=== PATIENT | female | born 1970 | race Caucasian/White ===

== ENCOUNTER 2021-02-16 09:57 | Emergency (ER) | payer SELFPAY ==
[~2021-02-16] VITALS: Ht 157.5 cm; Wt 61.4 kg
[2021-02-16 10:30] VITALS: BP 107/74
[2021-02-16] MEDS ORDERED: CYCLOBENZAPRINE HCL 10 MG TABLET PO ONE (10:30)
[2021-02-16] MEDS ORDERED: LIDOCAINE 5% TRANSDERMAL PATCH TD ONE (10:30)
[2021-02-16] MEDS ORDERED: IBUPROFEN 600 MG TABLET PO ONE (10:30)
== END 2021-02-16 11:31 | disposition home or self-care (01) ==
LOC: EMS 09:59 → EDSEX 09:59 → EMS 11:31
DX: M62.830 Muscle spasm of back (principal); M54.6 Pain in thoracic spine; M54.50 Low back pain, unspecified
CPT/HCPCS: 99284; Z7502; Z7610